=== PATIENT | male | born 1945 | race African-American/Black ===

== ENCOUNTER 2023-06-26 22:58 | Emergency (ER) | payer OTHER ==
[~2023-06-26] VITALS: Ht 170.2 cm; Wt 72.6 kg
[2023-06-26 23:36] LABS: BASOPHILS # (AUTO) 0.1 K/uL (0.00-0.22); BASOPHILS % (AUTO) 0.7 % (0.0-2.0); EOSINOPHILS # (AUTO) 0.1 K/uL (0-0.4); EOSINOPHILS % (AUTO) 0.6 % (0.0-4.0); HEMATOCRIT 36.5 % (36-52); HEMOGLOBIN 12.5 g/dL (12.0-18.0); LYMPHOCYTES # (AUTO) 1.3 K/uL (2.0-11.5); LYMPHOCYTES % (AUTO) 13.6 % (20.5-51.1); MEAN CORPUSCULAR HEMOGLOBIN 32 pg (27-31); MEAN CORPUSCULAR HGB CONC 34 g/dL (33-37); MEAN CORPUSCULAR VOLUME 93.9 fL (80-94); MONOCYTES # (AUTO) 0.6 K/uL (0.8-1.0); MONOCYTES % (AUTO) 6.2 % (1.7-9.3); NEUTROPHILS # (AUTO) 7.2 K/uL (1.8-7.7); NEUTROPHILS % (AUTO) 78.9 % (42.2-75.2); PLATELET COUNT (AUTO) 182 K/uL (140-450); RED BLOOD CELL COUNT(AUTO) 3.88 MIL/uL (4.20-6.10); RED CELL DISTRIBUTION WIDTH 12.9 % (11.6-13.7); WHITE BLOOD COUNT (AUTO) 9.2 K/uL (4.8-10.8)
[2023-06-26 23:39] VITALS: BP 180/107; PULSE 112; RESP 20; TEMP 98; O2SAT 98
[2023-06-26 23:54] LABS: ALANINE AMINOTRANSFERASE 20 U/L (12-78); ALCOHOL, BLOOD < 3 mg/dL (<10); ALKALINE PHOSPHATASE 96 U/L (50-136); ANION GAP 9.3 (8-16); ASPARTATE AMINOTRANSFERASE 24 U/L (15-37); CALCIUM 8.7 mg/dL (8.5-10.1); CARBON DIOXIDE 31.1 mmol/L (21-32); CHLORIDE 108 mmol/L (98-107); CREATININE 1.5 mg/dL (0.6-1.3); GLUCOSE 84 mg/dL (74-106); POTASSIUM 3.4 mmol/L (3.5-5.1); SODIUM SERUM 145 mmol/L (136-145); TOTAL BILIRUBIN 1.1 mg/dL (0.0-1.0); TOTAL PROTEIN, SERUM 7.4 g/dL (6.4-8.2); UREA NITROGEN, BLOOD 30 mg/dL (7-18)
[2023-06-26 23:58] LABS: ACETAMINOPHEN < 0.5 ug/ml (10-30); SALICYLATE < 2.8 mg/dL (2.8-20.0)
[2023-06-27 01:17] LABS: APPEARANCE,URINE CLEAR (CLEAR); BILIRUBIN,URINE 1+ (NEGATIVE); BLOOD, URINE NEGATIVE (NEGATIVE); COLOR,URINE YELLOW (YELLOW); LEUKOCYTE ESTERASE ,URINE NEGATIVE (NEGATIVE); NITRITE, URINE NEGATIVE (NEGATIVE); PROTEIN,URINE 2+ (NEGATIVE); UGLUCOSE NEGATIVE (NEGATIVE)
[2023-06-27 01:26] LABS: ICTOTEST POSITIVE (NEGATIVE)
[2023-06-27 01:40] LABS: AMPHETAMINE, URINE NEGATIVE ng/ml (NEG <=1000); BARBITURATE, URINE NEGATIVE ng/ml (NEG <=200); BENZODIAZEPINE, URINE NEGATIVE ng/mL (NEG <=200)
[2023-06-27 01:41] LABS: CANNABINOID, URINE POSITIVE ng/mL (NEG <=50); COCAINE, URINE NEGATIVE ng/mL (NEG <=300); OPIATE, URINE NEGATIVE ng/mL (NEG <=2000); PHENCYCLIDINE SCREEN,URINE NEGATIVE ng/mL (NEG <=25)
== END 2023-06-27 04:24 | disposition home or self-care (01) ==
LOC: MED 22:58
DX: R45.851 Suicidal ideations (principal); Z79.899 Other long term (current) drug therapy
CPT/HCPCS: 36415; 80053; 80305; 81003; 84484; 85025; 99285; G0480; G0482; Q0163

== ENCOUNTER 2023-07-30 22:34 | Inpatient (IN) | payer OTHER ==
[~2023-07-30] VITALS: Ht 165.1 cm; Wt 68.0 kg
[2023-07-30 22:39] VITALS: BP 155/86; PULSE 98; RESP 15; TEMP 98.2
[2023-07-30 23:11] LABS: BASOPHILS # (AUTO) 0.1 K/uL (0.00-0.22); BASOPHILS % (AUTO) 0.6 % (0.0-2.0); EOSINOPHILS # (AUTO) 0.1 K/uL (0-0.4); EOSINOPHILS % (AUTO) 0.8 % (0.0-4.0); HEMATOCRIT 36.8 % (36-52); HEMOGLOBIN 12.5 g/dL (12.0-18.0); LYMPHOCYTES # (AUTO) 1.9 K/uL (2.0-11.5); LYMPHOCYTES % (AUTO) 17.8 % (20.5-51.1); MEAN CORPUSCULAR HEMOGLOBIN 32 pg (27-31); MEAN CORPUSCULAR HGB CONC 34 g/dL (33-37); MEAN CORPUSCULAR VOLUME 94.5 fL (80-94); MONOCYTES # (AUTO) 0.7 K/uL (0.8-1.0); NEUTROPHILS # (AUTO) 7.8 K/uL (1.8-7.7); NEUTROPHILS % (AUTO) 73.8 % (42.2-75.2); PLATELET COUNT (AUTO) 196 K/uL (140-450); RED CELL DISTRIBUTION WIDTH 13.1 % (11.6-13.7); WHITE BLOOD COUNT (AUTO) 10.6 K/uL (4.8-10.8)
[2023-07-30 23:16] LABS: APPEARANCE,URINE CLEAR (CLEAR); BILIRUBIN,URINE NEGATIVE (NEGATIVE); BLOOD, URINE TRACE-I (NEGATIVE); COLOR,URINE YELLOW (YELLOW); LEUKOCYTE ESTERASE ,URINE NEGATIVE (NEGATIVE); NITRITE, URINE NEGATIVE (NEGATIVE); PROTEIN,URINE 2+ (NEGATIVE); UGLUCOSE NEGATIVE (NEGATIVE); UROBILINOGEN,URINE 0.2 EU/dL (0.2 - 1)
[2023-07-30 23:29] LABS: AMPHETAMINE, URINE NEGATIVE ng/ml (NEG <=1000); BARBITURATE, URINE NEGATIVE ng/ml (NEG <=200); BENZODIAZEPINE, URINE NEGATIVE ng/mL (NEG <=200); CANNABINOID, URINE POSITIVE ng/mL (NEG <=50); COCAINE, URINE NEGATIVE ng/mL (NEG <=300); OPIATE, URINE NEGATIVE ng/mL (NEG <=2000); PHENCYCLIDINE SCREEN,URINE NEGATIVE ng/mL (NEG <=25)
[2023-07-30 23:31] LABS: BACTERIA,URINE >30 (MANY) /HPF (None Seen); MUCUS,URINE 1+ /LPF (None Seen); SQUAMOUS EPITHELIAL CELL,UR 0-3 (FEW) /LPF (0-3 (FEW))
[2023-07-30 23:43] LABS: ALANINE AMINOTRANSFERASE 27 U/L (12-78); ALBUMIN 3.8 g/dL (3.4-5.0); ALCOHOL, BLOOD < 3 mg/dL (<10); ALKALINE PHOSPHATASE 106 U/L (50-136); ANION GAP 10.6 (8-16); ASPARTATE AMINOTRANSFERASE 25 U/L (15-37); CALCIUM 8.4 mg/dL (8.5-10.1); CARBON DIOXIDE 30.6 mmol/L (21-32); CHLORIDE 105 mmol/L (98-107); CREATININE 1.2 mg/dL (0.6-1.3); GLUCOSE 93 mg/dL (74-106); POTASSIUM 4.2 mmol/L (3.5-5.1); SALICYLATE < 2.8 mg/dL (2.8-20.0); SODIUM SERUM 142 mmol/L (136-145); TOTAL BILIRUBIN 0.7 mg/dL (0.0-1.0); TOTAL PROTEIN, SERUM 7.5 g/dL (6.4-8.2); UREA NITROGEN, BLOOD 21 mg/dL (7-18)
[2023-07-30 23:44] LABS: ACETAMINOPHEN < 0.5 ug/ml (10-30)
[2023-07-31] MEDS ORDERED: NACL 0.9% 1,000 ML IV ONE (00:20)
[2023-07-31 00:42] LABS: LACTIC ACID 1.1 mmol/L (0.4-2.0)
[2023-07-31] MEDS ORDERED: cefTRIAXone 1,000 MG VIAL ONE ×3 (00:42→21:45)
[2023-07-31 00:53] LABS: FREE T4 (FREE THYROXINE) 0.79 ng/dL (0.76-1.46); THYROID STIMULATING HORMONE 0.98 uIU/mL (0.34-3.74)
[2023-07-31] MEDS ORDERED: NACL 0.9% 1,000 ML IV SCH ×2 (01:50→09:50)
[2023-07-31] MEDS ORDERED: HYDROcodone/APAP 7.5/325 MG 1 TAB PO PRN (01:50)
[2023-07-31] MEDS ORDERED: ACETAMINOPHEN 325 MG TAB PO PRN (01:50)
[2023-07-31] MEDS ORDERED: POTASSIUM CHLORIDE 10 MEQ TABER PO PRN (01:50)
[2023-07-31] MEDS ORDERED: ONDANSETRON 4 MG/2 ML VIAL IM/IVP PRN (01:50)
[2023-07-31] MEDS ORDERED: guaiFENesin DM 200/20 MG-10 ML 10 ML UDC PO PRN (01:50)
[2023-07-31] MEDS ORDERED: ZOLPIDEM 5 MG TAB PO PRN (01:50)
[2023-07-31] MEDS ORDERED: DOCUSATE SODIUM 100 MG GELCAP PO PRN (01:50)
[2023-07-31] MEDS ORDERED: diphenhydrAMINE 50 MG/ML VIAL IVP ONE (02:35)
[2023-07-31 06:56] LABS: BASOPHILS # (AUTO) 0.1 K/uL (0.00-0.22); BASOPHILS % (AUTO) 0.5 % (0.0-2.0); EOSINOPHILS # (AUTO) 0.1 K/uL (0-0.4); EOSINOPHILS % (AUTO) 1.4 % (0.0-4.0); HEMATOCRIT 38.2 % (36-52); HEMOGLOBIN 12.8 g/dL (12.0-18.0); LYMPHOCYTES % (AUTO) 19.8 % (20.5-51.1); MEAN CORPUSCULAR HEMOGLOBIN 32 pg (27-31); MEAN CORPUSCULAR HGB CONC 34 g/dL (33-37); MEAN CORPUSCULAR VOLUME 94.7 fL (80-94); MONOCYTES # (AUTO) 0.8 K/uL (0.8-1.0); MONOCYTES % (AUTO) 8.2 % (1.7-9.3); NEUTROPHILS # (AUTO) 7.3 K/uL (1.8-7.7); NEUTROPHILS % (AUTO) 70.1 % (42.2-75.2); PLATELET COUNT (AUTO) 191 K/uL (140-450); RED BLOOD CELL COUNT(AUTO) 4.03 MIL/uL (4.20-6.10); RED CELL DISTRIBUTION WIDTH 13.1 % (11.6-13.7); WHITE BLOOD COUNT (AUTO) 10.4 K/uL (4.8-10.8)
[2023-07-31 07:33] VITALS: O2SAT 99
[2023-07-31 08:09] LABS: ALANINE AMINOTRANSFERASE 19 U/L (12-78); ALBUMIN 3.7 g/dL (3.4-5.0); ALKALINE PHOSPHATASE 92 U/L (50-136); ANION GAP 15.3 (8-16); ASPARTATE AMINOTRANSFERASE 22 U/L (15-37); CALCIUM 8.1 mg/dL (8.5-10.1); CARBON DIOXIDE 25.5 mmol/L (21-32); CHLORIDE 105 mmol/L (98-107); GLUCOSE 88 mg/dL (74-106); POTASSIUM 3.8 mmol/L (3.5-5.1); SODIUM SERUM 142 mmol/L (136-145); TOTAL BILIRUBIN 0.8 mg/dL (0.0-1.0); TOTAL PROTEIN, SERUM 7.5 g/dL (6.4-8.2); UREA NITROGEN, BLOOD 17 mg/dL (7-18)
[2023-07-31 09:32] VITALS: O2SAT 99
[2023-07-31] MEDS: PANTOPRAZOLE 40 MG TABEC PO SCH (10:04)
[2023-07-31 11:32] VITALS: O2SAT 99
[2023-07-31] MEDS ORDERED: NITROFURANTOIN 100 MG CAP PO SCH (17:00)
[2023-07-31 19:00] VITALS: BP 167/98; PULSE 94; RESP 18; TEMP 97; O2SAT 95
[2023-07-31 20:00] VITALS: BP 132/77; PULSE 73; RESP 18; TEMP 97.6; O2SAT 98
[2023-07-31] MEDS ORDERED: hydrALAZINE 25 MG TAB PO PRN (21:00)
[2023-08-01 04:00] VITALS: BP 162/92; PULSE 89; RESP 18; TEMP 97.7; O2SAT 100
[2023-08-01 08:00] VITALS: BP 124/77; PULSE 74; RESP 20; TEMP 98.2; O2SAT 98
[2023-08-01] MEDS: PANTOPRAZOLE 40 MG TABEC PO SCH (08:54)
[2023-08-01] MEDS ORDERED: amLODIPine 5 MG TAB PO SCH (09:00)
[2023-08-01] MEDS ORDERED: AMLO-3 PO (11:31)
[2023-08-01] MEDS ORDERED: CIPR250T6 PO (11:31)
[2023-08-01] MEDS ORDERED: TAMS0.4C96 PO (11:31)
== END 2023-08-01 13:10 | DRG 689 ==
LOC: MED 22:34 → UNDOADMIN 07-31 01:51 → MTU 07-31 01:51 → UNDOADMIN 07-31 17:57 → MTU 07-31 17:57
PROVIDERS: ADMIT Student in an Organized Health Care Education/Training Program; ATTEND Student in an Organized Health Care Education/Training Program
DX: N39.0 Urinary tract infection, site not specified (principal); G93.41 Metabolic encephalopathy; F33.2 Major depressive disorder, recurrent severe without psychotic features; R45.851 Suicidal ideations; D75.1 Secondary polycythemia; E11.9 Type 2 diabetes mellitus without complications; F20.9 Schizophrenia, unspecified; F12.90 Cannabis use, unspecified, uncomplicated; I10 Essential (primary) hypertension; F41.9 Anxiety disorder, unspecified; Z56.0 Unemployment, unspecified; E86.0 Dehydration
CPT/HCPCS: 36415; 70450; 80053; 80305; 81001; 82140; 83605; 84439; 84443; 84484; 85025; 87040; 87081; 87086; 93005; 96365; 96375; 97163-GP; 99285; G0480; G0482; J0696; J1200; J7060